=== PATIENT | female | born 1930 | race Caucasian/White ===

== ENCOUNTER → 2016-11-27 | Outpatient (CLI) | payer MEDICARE ==
[~2016-11-27] MED LIST: ANAS1TAB5 PO; ASPI-557 PO; ATOR10TA64 PO; CALC600T12 PO; CHOL100092 PO; CLON1TAB4 PO; FISH1CAP28 PO; LORA10TA62 PO; MIRT45TA PO; MULT-37 PO; RANI150T12 PO; SERT50TA12 PO; VIT1CAPS31 PO
--- NOTE | 2016-11-27 08:49 | DI ---
Indication: ITS.REASON: N18.3 CHRONIC KIDNEY DISEASE, STAGE 3 PROCEDURE: US RENAL: Encounter: Initial Comparison: None Technique: Grayscale and color Doppler sonographic imaging of both kidneys was performed. FINDINGS: Both kidneys are present with moderate cortical thinning and increased echogenicity. No evidence for collecting system dilatation, contour deforming mass, nephrolithiasis, or abnormal perinephric fluid collection. The right kidney measures 9.3 cm in length, and the left kidney measures 9.2 cm in length. 1.9 cm benign-appearing cyst incidentally noted in the right lobe of the liver. 1 cm simple appearing cyst in the medial left kidney. 1.8 cm anechoic cyst noted in the right kidney. IMPRESSION: No hydronephrosis. Findings of medical renal disease. .
== END ==
LOC: IMA 08:01
PROVIDERS: ATTEND Internal Medicine Nephrology
DX: N18.3 Chronic kidney disease, stage 3 (moderate) (principal)

== ENCOUNTER 2017-06-20 08:39 | Inpatient (IN) ==
[2017-06-20 09:00] VITALS: BMI 27.2
[2017-06-20] MEDS ORDERED: BUPIVACAINE 0.25%/EPI 1:200,000 30ml SDV ONE (09:09)
[2017-06-20] MEDS ORDERED: SALINE FLUSH 10ml SYRINGE ONE (09:10)
[2017-06-20] MEDS: NS 1,000 ML IV SCH ×2 (10:04→14:31)
--- NOTE | 2017-06-20 10:09 | Anesthesia Preoperative Report ---
Anesthesia Preoperative Record - Date and Time Date: 06/20/17 Preoperative Diagnosis: Neck exploration with Parathyroidectomy e21.0 hyperparathyroid Proposed Procedure: neck exploration, parathyroidectomy NPO Since Date: 06/19/17 NPO Since Time: 23:00 Allergies/Adverse Reactions: Allergies Allergy/AdvReac Type Severity Reaction Status Date / Time hydrocodone bit AdvReac Mild couldnt Uncoded 06/20/17 09:33 talk - Vital Signs Vital Signs: Temperature 97.7 F 06/20/17 08:59 Pulse Rate 60 06/20/17 09:52 Respiratory Rate 18 06/20/17 08:59 Blood Pressure 140/86 H 06/20/17 08:59 Pulse Oximetry 94 06/20/17 08:59 Height and Weight: Height 1.66 m Weight 75.5 kg Body Mass Index 27.2 - Medications Inpatient Medications: Current Medications Sodium Chloride (Normal Saline) 1,000 mls @ 50 mls/hr IV .Q20H HAYDE Last Admin: 06/20/17 10:04 Dose: 50 mls/hr Lidocaine HCl (Xylocaine-Mpf 1% Vial) 1 mg ID O ONE Stop: 06/20/17 15:29 Last Admin: 06/20/17 10:04 Dose: Not Given Home Medications: Home Medications Medication Instructions Recorded Confirmed Type Anastrozole [Arimidex] 1 mg PO DAILY #0 07/03/12 06/20/17 History Cholecalciferol (Vitamin D3) 2,000 mg PO AM #0 04/28/15 06/20/17 History [Vitamin D3] Vit C/Vit E AC/Lut/Copper/Zinc 1 tab PO BID #0 06/05/15 06/20/17 History [Preservision Lutein Softgel] Mirtazapine [Remeron] 45 mg PO HS #0 10/13/15 06/20/17 History coenzyme V67-oaegzky E 100 mg-100 1 cap PO DAILY cap 05/28/17 06/20/17 History unit capsule vitamin E (dl, acetate) 400 unit 1,200 unit PO DAILY cap 05/28/17 06/20/17 History capsule Lipitor (atorvastatin) 20 mg tablet 20 mg PO HS tab 06/05/17 06/20/17 History Tylenol Arthritis 650 mg 1 tab PO DAILY 06/05/17 06/20/17 History tablet,extended release Zoloft (sertraline) 50 mg tablet 75 mg PO Q24H tab 06/05/17 06/20/17 History metoprolol tartrate 25 mg tablet 12.5 mg PO DAILY tab 06/05/17 06/20/17 History calcitriol 0.5 mcg capsule 0.5 mcg PO DAILY cap 06/06/17 06/20/17 History Aspirin [Aspirin EC] 81 mg PO DAILY 06/19/17 06/20/17 History [place]-3 Fatty Acids/Fish Oil [Fish 1 each PO BID 06/19/17 06/20/17 History Oil 1,000 mg Softgel] clonazePAM [Clonazepam] 0.5 tab PO 0900,1300 06/19/17 06/20/17 History Carboxymethyl/Gly/Poly80/Pf 1 each EACH EYE QID 06/20/17 06/20/17 History [Refresh Optive Advanced Drops] Denosumab [Prolia] 60 mg SQ Q6M 06/20/17 06/20/17 History - Medical History Respiratory: DENIES: Sleep Apnea Cardiovascular: Reports: Congestive Heart Failure, Hypertension, Other (stent 10 yrs ago, Cleared by Dr. 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) - Surgical History Cardiac Surgeries/Treatments: Reports: Cardiac Catheterization (STENT), Pacemaker (MED[employer]IC MODEL # 18512) GI Surgery/Treatments: Reports: Colonoscopy Musculoskeletal Surgery/Tx: Reports: Other (FEMUR) Reproductive Surgery/Treatment: Reports: Lumpectomy Anesthesia Reactions: None Hx Family Anesthesia Reaction: No History of Motion Sickness: No - Social History Smoking Status: Former smoker Substance Use Type: does not use Alcohol Intake Frequency: does not drink - Pertinent Findings Laboratory: CBC and BMP 06/20/17 09:18 06/20/17 09:18 BMP 06/20/17 09:18 Sodium 147 H Potassium 4.5 Chloride 112 H Carbon Dioxide 24 BUN 23.0 H Creatinine 1.2 Glucose 91 Calcium 10.0 EKG: Sinus Rhythm Paced: 100% - Physical Exam Respiratory Exam: Present: lungs clear, bilateral breath sounds equal Cardiovascular Exam: Present: regular rate and rhythm, no murmur - Airway Assessment Mallampati Score: III Neck Extension: fair Overall Assessment: may be difficult intubation - ASA ASA Score: 3 - Plan Anesthesia: General Inhalation Gases - Discussion Discussion: Discussed risks/options/alternatives of anesthesia and questions answered. Patient consents. Nursing pain assessment noted. Attestation Statement: Prior to the delivery of any anesthetic medication, I examined the patient, developed the plan, obtained the patient's consent and discussed the risk and benefits of the procedure with the patient/guardian. - Additional Information Seen by Anesthesia: Yes
[2017-06-20] MEDS ORDERED: SCOPOLAMINE 1.5mg (delivers 1mg/24hrs) PATCH TD ONE (10:12)
[2017-06-20] MEDS ORDERED: FentaNYL 100 MCG/2 ML INJECTION ONE ×2 (10:21→12:23)
[2017-06-20] MEDS ORDERED: PROPOFOL 20 ML ONE ×2 (10:22→12:02)
[2017-06-20] MEDS ORDERED: ROCURONIUM 50 MG/5 ML INJECTION IVP ONE ×2 (10:22→11:39)
[2017-06-20] MEDS ORDERED: KETAMINE 500 MG/10 ML INJECTION ONE (10:22)
[2017-06-20] MEDS ORDERED: LIDOCAINE 2% JELLY Tube 30ml ONE (10:23)
[2017-06-20] MEDS ORDERED: METOCLOPRAMIDE 10mg/2ml INJECTION ONE (10:34)
[2017-06-20] MEDS ORDERED: ONDANSETRON 4 MG/2 ML INJECTION ONE (10:34)
[2017-06-20] MEDS ORDERED: DEXAMETHASONE 4 MG/ML INJECTION ONE (10:34)
[2017-06-20] MEDS ORDERED: EPHEDRINE 50mg/ml INJECTION ONE (10:40)
[2017-06-20] MEDS ORDERED: SUGAMMADEX 200mg/2ml INJECTION IVP ONE (12:01)
[2017-06-20] MEDS ORDERED: BUPIVACAINE 0.25%/EPI 1:200,000 30ml SDV ID ONE (12:10)
--- NOTE | 2017-06-20 12:42 | General Surgery Procedure Note ---
Date of Procedure: 06/20/17 Surgeon: Kirk Senior Sales Assistant: Emilio Bates APRN Postoperative Diagnosis: Primary hyperparathyroidism Procedure: Neck exploration with right lower parathyroidectomy Estimated Blood Loss: See Anesthesia Record.
[2017-06-20] MEDS ORDERED: TRAMADOL 50 MG TABLET PO PRN (13:12)
[2017-06-20] MEDS ORDERED: HYDROMORPHONE 2 MG/ML INJECTION IVP PRN (13:12)
[2017-06-20] MEDS ORDERED: ACETAMINOPHEN 650 MG PO PRN (13:12)
[2017-06-20] MEDS ORDERED: ONDANSETRON 4 MG/2 ML INJECTION IVP PRN (13:12)
--- NOTE | 2017-06-20 14:04 | Anesthesia Postoperative Note ---
- Date and Time Date: 06/20/17 Time: 12:40 - Status Patient Participated in Evaluation: Patient Participated in Person Vital Signs: Temperature 98.2 F 06/20/17 13:32 Pulse Rate 79 06/20/17 13:32 Respiratory Rate 10 06/20/17 13:32 Blood Pressure 136/67 06/20/17 13:32 Pulse Oximetry 91 06/20/17 13:32 Respiratory Function: Airway Patent Cardiovascular Function: Regular Pulse EKG: Sinus Rhythm Mental Status: Alert and Oriented Pain Intensity: 0 Hydration: IV Infusing Complications During Recover: None Apparent - Follow-Up Instructions Instructions: Per Surgeon
--- NOTE | 2017-06-20 15:20 | Operative Note ---
DATE OF SERVICE 06/20/2017 SURGEON David Bradley MD STRATEGIC PARTNER DEVELOPMENT MANAGER Emilio Bates APRN PREOPERATIVE DIAGNOSIS Symptomatic hyperparathyroidism. POSTOPERATIVE DIAGNOSIS Symptomatic hyperparathyroidism. PROCEDURE Neck exploration with excision of right inferior parathyroid adenoma. ANESTHESIA General endotracheal. EBL/FLUIDS Please see chart. BRIEF HISTORY/INDICATIONS Mrs. Frances is an 87-year-old female who presented to my office as a result of her finding of hypercalcemia/hyperparathyroidism upon laboratory evaluation. The patient was found to have an increased parathyroid hormone level in conjunction with an increased calcium level. She did undergo a DEXA scan that revealed evidence for osteoporosis. Additionally, her darkroom technician stated that her chronic renal insufficiency was also a result of nephrocalcinosis. As result of her symptomatic primary hyperparathyroidism it was recommended to the patient that she undergo surgical repair. For completeness please refer to notes included in the patient's chart. FINDINGS Upon neck exploration the patient was found to have a moderate-sized right inferior parathyroid adenoma. No other abnormalities were noted within the neck. NARRATIVE OF PROCEDURE After informed consent was obtained the patient was brought to the operative suite and placed on the table in supine fashion. The upper anterior chest and neck were then prepped and draped in sterile fashion. Formal time-out was then completed. A 4-cm incision was then made along the natural lines of Langerhans approximately one fingerbreadth above the clavicle. Prior to the incision the area was injected with 0.25% Marcaine with epinephrine. Dissection was carried down to the underlying subcutaneous tissues to underlying platysma. A subplatysmal flap was then created in a cephalad fashion up to the cricoid cartilage. Subplatysmal flap was also created caudally down to the sternal notch. Strap muscles were then opened along the midline location. Green retractor was then placed along the strap muscles on the right and the strap muscles were reflected laterally and anteriorly. Thyroid was then identified and dissected away from the strap muscles. One could see what appeared to be a nodule along the inferior aspect of the right thyroid lobe. Patient had undergone a sestamibi scan that did reveal a questionable finding of a possible right inferior parathyroid adenoma. This nodule was about 8 mm in diameter and appeared to be a slightly different color than the adjacent thyroid. This nodule was excised and submitted for pathologic evaluation. Dissection was then continued along the lateral aspect of the thyroid. The thyroid was reflected medially. Middle thyroidal vessels were left intact. Dissection was carried up to the superior portion of the thyroid. I did not see any additional abnormalities that were suspicious for additional adenoma. Ten minutes were allowed to elapse and a repeat parathyroid hormone level was drawn. Attention was then focused to the left thyroid lobe while we were awaiting pathology and parathyroid hormone level. Green retractor was placed upon the left strap muscles and the left strap muscles were reflected anteriorly and laterally. Dissection was begun upon the inferior aspect of the left thyroid lobe. One could see a normal-appearing left parathyroid gland. This was left intact. Pathology then returned a call to the operative suite stating that the tissue that was submitted was thyroidal in nature and not parathyroid tissue. Dissection was then continued for a short period of time along the left thyroid lobe. The superior aspect of the thyroid was reflected medially and dissected out posteriorly. I did not see any additional evidence for parathyroid adenoma superiorly. Attention was then focused back to the original area of concern involving the right inferior parathyroid location. Beneath the thyroid lobe approximately 1 cm beneath the lobe within some fatty tissue one could then begin to see what appeared to be that of a parathyroid adenoma. The fatty tissue overlying this parathyroid adenoma was dissected out and one could then clearly see a right inferior parathyroid adenoma which was indeed enlarged in nature. This was carefully and meticulously dissected away from the surrounding tissues. Once this apparent parathyroid adenoma was excised it was submitted for pathologic evaluation. An additional ten minutes were allowed to elapse and a repeat parathyroid hormone level was obtained. I did elect to go ahead and proceed with closure. A small Lee drain was allowed to exit inferiorly into the right of her cervical incision. Drain was placed along both the right and left thyroid lobes. Strap muscles were then closed in a running fashion with 3-0 Vicryl. The subplatysmal flap was then reapproximated in a running fashion with 3-0 Vicryl. Skin itself was then closed in a subcuticular fashion with 4-0 Monocryl. . Pathology then returned a call to the operative suite stating that the tissue that had been excised was that of parathyroidal tissue which weighed over 300 mg. A repeat parathyroid hormone level was drawn as stated above about 10 minutes following excision of the gland. An additional 10-15 minutes were spent waiting for the parathyroid hormone level to return to the operative suite. Preoperatively the level was 108. The second lab draw was a PTH of 121 following excision of the initial tissue. The third parathyroid hormone level did return at 52, indicative of surgical cure. The patient was awakened from her general anesthetic and sent back to the recovery once deemed in stable condition. Additionally, it should be noted that Emilio Bates APRN, was present throughout the entire case and played a pivotal role in providing assistance and exposure during the course of the procedure. NADEEN
[2017-06-20] MEDS ORDERED: LIDOCAINE 1% (10mg/ml) 2mL INJ PF SDV ID ONE (15:28)
[2017-06-20] MEDS: CLONAZEPAM 0.5 MG PO SCH (15:51)
[2017-06-20] MEDS: BENZOCAINE/MENTHOL SORE THROAT LOZENGE MM PRN ×2 (16:40→18:08)
[2017-06-20] MEDS: --POM--ATORVASTATIN 20 MG TABLET PO SCH (22:06)
[2017-06-20] MEDS: MIRTAZAPINE 45 MG PO SCH (22:06)
[2017-06-21] MEDS: BENZOCAINE/MENTHOL SORE THROAT LOZENGE MM PRN ×2 (02:48→07:39)
[2017-06-21] MEDS: CLARITIN 10 MG PO SCH (05:43)
[2017-06-21] MEDS ORDERED: CALCIUM GLUCONATE 1,000mg/10ml INJECTION IVP ONE (07:11)
[2017-06-21] MEDS ORDERED: CALCIUM 500 + VIT D 200 TABLET PO ONE (07:17)
[2017-06-21] MEDS ORDERED: CALCIUM GLUCONATE 1,000 MG in NS 50 ML IVP ONE (08:00)
[2017-06-21] MEDS: CALCITRIOL 0.25 MCG CAPSULE PO SCH (08:02)
[2017-06-21] MEDS: VITAMIN D3 2000 UNIT PO SCH (08:05)
[2017-06-21] MEDS: ANASTROZOLE 1 MG PO SCH (08:05)
[2017-06-21] MEDS: CLONAZEPAM 0.5 MG PO SCH ×2 (08:06→13:13)
[2017-06-21] MEDS ORDERED: PNEUMOCOCCAL 13 VACCINE 0.5ml INJECTION IM ONE (12:03)
--- NOTE | 2017-06-21 12:07 | Progress Note ---
DATE OF SERVICE 06/21/2017 FINDINGS Mrs. Frances this morning was without complaints. She states that her neck discomfort has improved. PHYSICAL EXAM VITAL SIGNS: Afebrile, normotensive. NECK: Surgical incision is clean, dry and intact. Minimal output is noted within the STACIA drain. No evidence for hematoma. Voice is strong. LABORATORY/RADIOGRAPHIC EVALUATION The patient's calcium this morning did decrease to 6.6. She was given IV calcium and 1000 mg of Os-Silas. A repeat calcium was 9.2. ASSESSMENT 87-year-old female status post neck exploration with excision of parathyroid adenoma secondary to symptomatic hyperparathyroidism. Patient currently doing well. The patient has developed postoperative hypocalcemia. PLAN Will continue to keep the patient in the hospital over the next 24 hours to follow her calcium levels to document that they remain stable. I have now placed on calcium supplementation consisting of Os-Silas 500 mg two tablets q.8h. Hopefully, the patient's calcium will stabilize and she will be able to be discharged tomorrow. Will go ahead and DC Aubrey-Rodriguez drain this morning as well. NADEEN
[2017-06-21] MEDS: NS 1,000 ML IV SCH (12:20)
[2017-06-21] MEDS ORDERED: PNEUMOCOCCAL VAC ADMIN CHARGE INJ ONE (12:30)
[2017-06-21] MEDS: CALCIUM 500 + VIT D 200 TABLET PO SCH ×2 (15:03→21:15)
[2017-06-21 20:09] VITALS: RESP 18
[2017-06-21] MEDS: MIRTAZAPINE 45 MG PO SCH (21:16)
[2017-06-21] MEDS: --POM--ATORVASTATIN 20 MG TABLET PO SCH (21:16)
[2017-06-22 04:48] VITALS: O2SAT 90
[2017-06-22] MEDS: CLARITIN 10 MG PO SCH (05:51)
[2017-06-22 07:37] VITALS: BP 122/66; PULSE 64; TEMP 98.3
[2017-06-22] MEDS: CALCIUM 500 + VIT D 200 TABLET PO SCH (08:30)
[2017-06-22] MEDS: CALCITRIOL 0.25 MCG CAPSULE PO SCH (08:30)
[2017-06-22] MEDS: ANASTROZOLE 1 MG PO SCH (08:31)
[2017-06-22] MEDS: VITAMIN D3 2000 UNIT PO SCH (08:32)
[2017-06-22] MEDS: CLONAZEPAM 0.5 MG PO SCH (08:33)
[2017-06-22] MEDS: NS 1,000 ML IV SCH (08:37)
--- NOTE | 2017-06-23 07:44 | Progress Note ---
DATE 06/22/2017 FINDINGS Ms. Frances, this morning, was without complaints. VITALS: Afebrile. Normotensive. HEENT: Incision within the lower cervical region is healing without difficulty. No significant hematoma present. Voice is strong. LABORATORY/RADIOGRAPH EVALUATION Calciums have been stable since yesterday. Please refer to EMR. ASSESSMENT Status post neck exploration with excision of parathyroid adenoma. Patient doing well. PLAN Will discharge to home on additional Os-Silas as she is currently taking. Will have the patient recheck calcium later this week. NADEEN
[2017-06-23] MEDS ORDERED: SCOPOLAMINE PATCH REMOVAL TD SCH (10:15)
== END 2017-06-22 11:38 | disposition home or self-care (01) | DRG 627 ==
LOC: SUR 08:39 → SRG 08:42
PROVIDERS: ADMIT Surgery; ATTEND Surgery